=== PATIENT | female | born 1975 | race Caucasian/White ===

== ENCOUNTER → 2018-12-12 | Emergency (ER) | payer OTHER ==
[~2018-12-12] VITALS: Ht 144.8 cm; Wt 65.8 kg
[~2018-12-12] MED LIST: MACROBID 100 M100 MG PO; PRENATAL CAPLE1 EACH PO; ZYRTEC10 MG PO
== END | disposition home or self-care (01) ==
LOC: ER 10:15
DX: A09 Infectious gastroenteritis and colitis, unspecified (principal)